=== PATIENT | male | born 1975 | race Caucasian/White ===

== ENCOUNTER 2024-09-21 15:15 | Inpatient (IN) | payer OTHER ==
--- NOTE | 2024-09-21 16:30 | RAD REPORT ---
EXAM:Extremity Venous Uni Ltd HISTORY: Left leg pain TECHNIQUE: Sonographic evaluation left lower extremity performed.Grayscale, color and spectral analys is performed on all vessels COMPARISON: None. FINDINGS: Left common femoral, superficial femoral, greater saphenous, popliteal and posterior tibial veins are compressible and demonstrate augmentation. Doppler demonstrates good flow. IMPRESSION: No evidence of deep venous thrombosis involving the left lower extremity.
--- NOTE | 2024-09-21 16:33 | RAD REPORT ---
EXAM:Lower Extremity Artery Uni Ltd HISTORY: Left eg pain TECHNIQUE: Sonographic evaluation lower extremity arteries performed.Grayscale, color and spectral analysis performed on all vessels COMPARISON: None. FINDINGS: Left common femoral, superficial femoral, popliteal, posterior tibial and dorsalis pedis arterial wav eforms are generally biphasic. No high-grade stenosis/occlusion 2.4 cm lymph node which is relatively hypoechoic left inguinal region. IMPRESSION: No significant vascular abnormality displayed 2.4 cm lymph node left inguinal region nonspecific. It probably is benign. However as neoplasm can diaz ve a similar appearance it is recommended that the patient have a follow-up ultrasound in 6 weeks to assess stability/resolution.
[2024-09-21] MEDS ORDERED: NA CHLORIDE 0.9% 100 ML ONE (17:29)
[2024-09-21] MEDS ORDERED: VANCOMYCIN 1 GM/VIAL ONE (17:29)
[2024-09-21] MEDS ORDERED: NA CHLORIDE 0.9% 250 ML ONE (17:29)
[2024-09-21] MEDS ORDERED: CEFEPIME 1 GM/VIAL ONE (17:30)
[2024-09-21] MEDS ORDERED: NA CHLORIDE 0.9% 2,000 ML ONE (17:30)
[2024-09-21 17:40] LABS: Absolute Lymphocytes (CBC) 1.3 K/uL (0.7-4.9); Absolute Monocytes 0.9 K/uL (0.1-1.3); Absolute Neutrophil 10.3 K/uL (1.8-8.0); Basophils % 0.2 % (0-1.3); Hematocrit 40.2 % (39.6-49.0); Hemoglobin 13.8 g/dL (13.6-17.9); Lymphocytes % 10.6 % (15.3-44.8); MCH 27.9 pg (27.0-35.0); MCHC 34.4 g/dL (32.0-36.0); MPV 8.3 fL (7.6-11.3); Monocytes % 7.2 % (3.3-12.3); Nucleated Red Blood Cells % 0.1 % (0-0); Platelets 245 thou/uL (152-406); RBC Red Blood Cell Count 4.96 M/uL (4.33-5.43); Red Cell Distribution Width 14.2 % (12.1-15.2)
[2024-09-21 18:53] LABS: PT Prothrombin Time 13.8 SECONDS (10.0-13.0); PTT, Activated Partial Thromb 25.7 SECONDS (24.3-36.9); Protime INR 1.22
[2024-09-21 18:54] LABS: Albumin/Globulin Ratio 0.6 (1.1-1.8); Anion Gap 10.6 mEq/L (5.0-15.0); Bilirubin Total 0.6 mg/dL (0.2-1.0); Potassium 3.6 mEq/L (3.5-5.1)
--- NOTE | 2024-09-21 18:56 | RAD REPORT ---
Exam:Foot Left 3 View CLINICAL HISTORY: Left foot pain FINDINGS: No fracture or dislocation seen. Large plantar calcaneal spur Soft tissue ulceration dorsal aspect of the forefoot. No bony destructive lesion seen
--- NOTE | 2024-09-21 19:05 | EDPHYS ---
Physician Documentation [facility] Name: Bernice Quintana Age: 49 yrs Sex: Male : 1975 Arrival Date: 09/21/2024 Time: 15:15 Bed 17 Private MD: ED Physician Douglas Brumfield HPI: 09/21 16:49 This 49 yrs old Male presents to ER via Wheelchair with complaints of Wound Check - kb left foot/leg. 16:49 Pt is a 49 year old male who presents for wound to top of left foot that has been kb ongoing for 3 months. States it developed in June, he was seen at and given antibiotics. States the wound started getting better until he ran out of antibiotics. Was seen again 2 weeks ago for strep and was given antibiotics which improved his foot, but symptoms started again once antibiotics were completed. States the wound, drainage and swelling has gotten worse over the last 3 days and he developed redness and swelling up his leg since yesterday. Reports fever as well. . Historical: - Allergies: 15:39 No Known Allergies; iw - Home Meds: 15:38 None [Active]; iw - PMHx: 15:43 None; iw - Immunization history:: Adult Immunizations not up to date. - Infectious Disease History:: Denies. - Social history:: Smoking status: Patient/guardian denies using tobacco, Stopped _ months ago 1. ROS: 16:16 Constitutional: As per HPI kb Exam: 16:16 Constitutional: This is a well developed, well nourished patient who is awake, alert, kb and in no acute distress. Head/Face: Normocephalic, atraumatic. ENT: Moist Mucous membranes Cardiovascular: Regular rate Respiratory: Respirations even and unlabored. No increased work of breathing. Talking in full sentences MS/ Extremity: Pulses equal, no cyanosis. Neurovascular intact. Full, normal range of motion. Neuro: Awake and alert, GCS 15, oriented to person, place, time, and situation. 16:45 ECG was reviewed by the Attending Physician. kb 16:48 Skin: cellulitis, that is moderate, on the left leg, open wound to top of left foot kb with drainage. Vital Signs: 15:37 BP 144 / 99; Pulse 112; Resp 18; Temp 99.1(O); Pulse Ox 98% on R/A; Weight 95.25 kg; iw Height 5 ft. 10 in. ; Pain 4/10; 18:00 BP 137 / 75; Pulse 95; Resp 18; Pulse Ox 99% ; bp 19:30 BP 147 / 101; Pulse 105; Resp 17; Temp 98.4(O); Pulse Ox 99% on R/A; bp 15:37 Body Mass Index 30.13 (95.25 kg, 177.8 cm) iw 15:37 Pain Scale: Adult iw MDM: 15:24 Medical Screening Exam initiated kb 17:47 Data reviewed: vital signs, nurses notes. Transition of care: After a detail discussion kb of the patient's case, care is transferred to Shavon Michael PA-C. 09/21 15:41 Order name: Blood Culture Adult (2); Complete Time: 17:44 kb 09/21 15:41 Order name: CBC with Diff; Complete Time: 17:49 kb 09/21 15:41 Order name: CMP; Complete Time: 18:55 kb 09/21 15:41 Order name: Lactate w/ 2H reflex if indic.; Complete Time: 19:04 kb 09/21 15:41 Order name: Protime (+inr); Complete Time: 18:53 kb 09/21 15:41 Order name: Ptt, Activated; Complete Time: 18:53 kb 09/21 17:46 Order name: Wound Culture; Complete Time: 14:21 kb 09/21 19:49 Order name: Creatine Phosphokinase; Complete Time: 23:30 EDMS 09/21 19:49 Order name: CBC with Automated Diff EDPR 09/21 19:49 Order name: CBC with Automated Diff; Complete Time: 17:44 EDMS 09/21 19:49 Order name: Comprehensive Metabolic Panel EDPR 09/21 19:49 Order name: Comprehensive Metabolic Panel; Complete Time: 17:44 EDMS 09/21 19:49 Order name: Lipid Profile EDPR 09/21 19:49 Order name: Lipid Profile; Complete Time: 17:44 EDMS 09/21 19:57 Order name: Osmolality, Serum; Complete Time: 23:57 EDMS 09/21 19:57 Order name: Osmolality, Urine; Complete Time: 14:21 EDMS 09/21 19:57 Order name: Thyroid Stimulating Hormone; Complete Time: 23:36 EDMS 09/21 19:57 Order name: UR SODIUM; Complete Time: 14:21 EDMS 09/21 19:57 Order name: Magnesium EDMS 09/21 19:57 Order name: Magnesium; Complete Time: 23:36 EDMS 09/21 19:57 Order name: Magnesium EDPR 09/21 19:57 Order name: Magnesium EDPR 09/22 06:52 Order name: LDL, Direct; Complete Time: 17:44 EDMS 09/21 15:41 Order name: US Extremity Venous Unilateral Ltd; Complete Time: 16:32 kb 09/21 15:41 Order name: US Lower Extremity Artery Uni Ltd; Complete Time: 16:34 kb 09/21 17:43 Order name: Foot Left 3 View XRAY; Complete Time: 18:57 kb 09/22 13:29 Order name: US; Complete Time: 17:44 EDMS 09/21 15:41 Order name: EKG; Complete Time: 15:41 kb 09/21 19:49 Order name: CONS Physician Consult EDPR 09/21 15:41 Order name: Accucheck; Complete Time: 15:57 kb 09/21 15:41 Order name: Cardiac monitoring; Complete Time: 15:57 kb 09/21 15:41 Order name: EKG - Nurse/Tech; Complete Time: 16:43 kb 09/21 15:41 Order name: IV Saline Lock - Large Bore; Complete Time: 17:05 kb 09/21 15:41 Order name: Labs collected and sent; Complete Time: 17:05 kb 09/21 15:41 Order name: O2 Per Protocol; Complete Time: 15:57 kb 09/21 15:41 Order name: O2 Sat Monitoring; Complete Time: 15:57 kb 09/21 15:41 Order name: Vital Signs; Complete Time: 15:57 kb 09/21 17:33 Order name: Labs - recollect needed: recollect all the blood per Yamilet / hemolyzed; eb Complete Time: 18:13 EC:45 Rate is 95 beats/min. Rhythm is regular. QRS [place] is Normal. CO interval is normal at kb 164 msec. QRS interval is normal at 92 msec. QT interval is normal at 444 msec. Administered Medications: 18:23 Drug: NS 0.9% IV (30 ml/kg) 30 ml/kg IV at bolus once; Sepsis Protocol; to be given as bp a bolus over 90 minutes Route: IV; Rate: bolus; Site: left forearm; 18:23 Drug: Cefepime IVPB 1 grams IVPB at 200 ml/hr once over 30 mins; (mix in NS 100 mL) bp Route: IVPB; Rate: 200 ml/hr; Infused Over: 30 mins; Site: left forearm; 19:02 Drug: vancoMYCIN IVPB 1 grams IVPB once over 2 hrs Route: IVPB; Infused Over: 2 hrs; bp Site: left forearm; Disposition: 09/22 12:45 Co-signature as Attending Physician, Douglas Brumfield MD I agree with the assessment and brian plan of care. Disposition Summary: 09/21/24 19:05 Hospitalization Ordered Notes: Hospitalization Status: Inpatient Admission sb4 Provider: Reji Flores sb4 Condition: Fair sb4 Problem: new sb4 Symptoms: are unchanged sb4 Bed/Room Type: Standard sb4 Location: Telemetry/MedSurg (Inpatient)(09/22/24 13:10) bd Room Assignment: [facility](09/22/24 13:10) bd Diagnosis - Cellulitis of left lower limb sb4 - Sepsis, unspecified organism sb4 Forms: - Medication Reconciliation Form sb4 - SBAR form sb4 - Leadership Thank You Letter sb4 Signatures: Dispatcher [employer] EDBecky Ledesma, DIRECTOR TALENT-C DIRECTOR TALENT-Belkys Spencer Corey, MD MD cha Williams, Irene, RN Bo Baker, RN Migdalia Mcelroy Sophia, PA-C PA-C [facility] Lillie Allen [facility] Corrections: (The following items were deleted from the chart) 09/21 15:41 15:41 Extremity Venous Uni Ltd+US.RAD.BRZ ordered. EDMS EDMS 15:42 15:42 Lower Extremity Artery Uni Ltd+US.RAD.BRZ ordered. EDMS EDMS 16:48 16:16 Constitutional: This is a well developed, well nourished patient who is awake, kb alert, and in no acute distress. Head/Face: Normocephalic, atraumatic. kb 19:50 19:05 Telemetry/MedSurg (Inpatient) sb4 kmf 19:50 19:05 sb4 km 09/22 13:10 09/21 19:50 BR ER HOLD kmf bd 09/22 19:50 ERHOLD- kmf bd
--- NOTE | 2024-09-21 19:05 | ER ---
Nurse's Notes [facility] Name: Berncie Quintana Age: 49 yrs Sex: Male : 1975 Arrival Date: 09/21/2024 Time: 15:15 Bed 17 Private MD: Diagnosis: Cellulitis of left lower limb;Sepsis, unspecified organism Presentation: 09/21 15:37 Chief complaint: Patient states: wound to top of left foot since June, redness and iw swelling up the leg now. Coronavirus screen: At this time, the client does not indicate any symptoms associated with coronavirus-19. Ebola Screen: No symptoms or risks identified at this time. Initial Sepsis Screen: Does the patient meet any 2 criteria? HR > 90 bpm. Does the patient have a suspected source of infection?. Risk Assessment: Do you want to hurt yourself or someone else? Patient reports no desire to harm self or others. Onset of symptoms was June 2024. 15:37 Method Of Arrival: Wheelchair iw 15:37 Acuity: IMANI 3 iw Triage Assessment: 15:45 General: Appears in no apparent distress. uncomfortable, Behavior is calm, cooperative, bp appropriate for age. Pain: Complains of pain in left foot. EENT: No deficits noted. Neuro: No deficits noted. Cardiovascular: Rhythm is sinus tachycardia. Respiratory: No deficits noted. GI: No signs and/or symptoms were reported involving the gastrointestinal system. : No signs and/or symptoms were reported regarding the genitourinary system. Derm: Decubitus located on left FOOT. Musculoskeletal: No deficits noted. Historical: - Allergies: 15:39 No Known Allergies; iw - Home Meds: 15:38 None [Active]; iw - PMHx: 15:43 None; iw - Immunization history:: Adult Immunizations not up to date. - Infectious Disease History:: Denies. - Social history:: Smoking status: Patient/guardian denies using tobacco, Stopped _ months ago 1. Screenin:45 [facility] ED Fall Risk Assessment (Adult) History of falling in the last 3 months, bp including since admission No falls in past 3 months (0 pts) Confusion or Disorientation No (0 pts) Intoxicated or Sedated No (0 pts) Impaired Gait No (0 pts) Mobility Assist Device Used No (0 pt) Altered Elimination No (0 pt) Score/Fall Risk Level 0 - 2 = Low Risk Oriented to surroundings. Abuse screen: Denies threats or abuse. Denies injuries from another. Nutritional screening: No deficits noted. Tuberculosis screening: No symptoms or risk factors identified. Assessment: 15:45 General: Appears in no apparent distress. Behavior is cooperative, appropriate for age, bp anxious. 19:36 General: Appears in no apparent distress. Behavior is calm, cooperative. Pain: Denies bp pain. Neuro: Level of Consciousness is awake, alert, Oriented to person, place, time, situation. Cardiovascular: Denies chest pain, Patient's skin is warm and dry. Respiratory: Airway is patent Trachea midline Respiratory effort is even, unlabored. GI: Abdomen is round non-distended, Abd is soft and non tender. : No signs and/or symptoms were reported regarding the genitourinary system. EENT: No deficits noted. Derm: Skin is intact, Skin is dry, Skin is normal, Skin temperature is warm. Musculoskeletal: Circulation, motion, and sensation intact. Range of motion: intact in all extremities. Vital Signs: 15:37 BP 144 / 99; Pulse 112; Resp 18; Temp 99.1(O); Pulse Ox 98% on R/A; Weight 95.25 kg; iw Height 5 ft. 10 in. ; Pain 4/10; 18:00 BP 137 / 75; Pulse 95; Resp 18; Pulse Ox 99% ; bp 19:30 BP 147 / 101; Pulse 105; Resp 17; Temp 98.4(O); Pulse Ox 99% on R/A; bp 15:37 Body Mass Index 30.13 (95.25 kg, 177.8 cm) iw 15:37 Pain Scale: Adult iw ED Course: 15:17 Patient arrived in ED. im 15:23 Becky Costa FNP-C is PHCP. kb 15:23 Douglas Brumfield MD is Attending Physician. kb 15:38 Triage completed. iw 15:43 Arm band placed on. iw 15:45 Patient has correct armband on for positive identification. bp 15:54 Bo Becerra, RN is Primary Nurse. bp 16:27 US Extremity Venous Unilateral Ltd In Process Unspecified. EDMS 16:27 US Lower Extremity Artery Uni Ltd In Process Unspecified. EDMS 16:44 EKG done, by ED staff, reviewed by Becky RESTREPO. hb 17:00 Initial lab(s) drawn, by me, sent to lab. First set of blood cultures drawn by me, bp Second set of blood cultures drawn by me. Inserted saline lock: 22 gauge in left forearm, using aseptic technique. Blood collected. Flushed with 10 mL NS. 17:46 PHCP role handed off by Becky Costa FNP-C sb4 17:46 Shavon Michael PA-C is PHCP. sb4 18:26 Lab(s) recollected, by me, sent to lab. Wound culture swab sent to lab. bp 18:41 Foot Left 3 View XRAY In Process Unspecified. EDMS 19:04 Reji Flores MD is Hospitalizing Provider. sb4 19:36 Provided Education on: needs for admit. bp 19:36 No provider procedures requiring assistance completed. Patient admitted, IV remains in bp place. intact, No redness/swelling at site. 22:56 Inserted saline lock: 22 gauge in right antecubital area, using aseptic technique. lg3 Blood collected. Flushed with 10 mL NS. 09/22 07:17 Primary Nurse role handed off by Bo Becerra, ANTONIA bd 13:12 Danyelle Eddy, RN is Primary Nurse. me1 Administered Medications: 09/21 18:23 Drug: NS 0.9% IV (30 ml/kg) 30 ml/kg IV at bolus once; Sepsis Protocol; to be given as bp a bolus over 90 minutes Route: IV; Rate: bolus; Site: left forearm; 18:23 Drug: Cefepime IVPB 1 grams IVPB at 200 ml/hr once over 30 mins; (mix in NS 100 mL) bp Route: IVPB; Rate: 200 ml/hr; Infused Over: 30 mins; Site: left forearm; 19:02 Drug: vancoMYCIN IVPB 1 grams IVPB once over 2 hrs Route: IVPB; Infused Over: 2 hrs; bp Site: left forearm; Medication: 15:45 VIS not applicable for this client. bp Outcome: 19:05 Decision to Hospitalize by Provider. sb4 19:36 Admitted to Med/surg accompanied by tech, bp 19:36 Condition: improved 19:36 Instructed on the need for admit, 09/22 14:41 Patient left the ED. me1 Signatures: Dispatcher [employer] EDMS Becky Costa, PRINTED CIRCUIT LAYOUT TAPER-C PRINTED CIRCUIT LAYOUT TAPER-Ckb Belkys Medina Irene, RN RN iw Rivka Bernal, ANTONIA RN Bo Becerra RN RN bp Sherley Ríos RN RN lg3 Shavon Michael, PARoxanne PARoxanne sb4 Felicia Mercado Michelle, RN RN me1 Corrections: (The following items were deleted from the chart) 09/21 15:43 15:37 BP 144 / 99; Pulse 112bpm; Resp 18bpm; Pulse Ox 98% RA; Temp 97.4F; iw iw
[2024-09-21] MEDS ORDERED: ONDANSETRON 4 MG/2 ML VIAL IV PRN (19:42)
[2024-09-21] MEDS ORDERED: ALBUTEROL 2.5 MG/3 ML NEB SOL NEB PRN (19:44)
--- NOTE | 2024-09-21 19:54 | P.HP ---
Certification for Inpatient With expected LOS: >2 Midnights Patient will require the following post-hospital care: None Practitioner: I am a practitioner with admitting privileges, knowledge of patient current condition, hospital course, and medical plan of care. Services: Services provided to patient in accordance with Admission requirements found in Title 42 Section 412.3 of the Code of Federal Regulations Patient History Date of Service: 09/21/24 Reason for admission: Left leg pain and swelling History of Present Illness: 49-year-old male with past medical history of hypertension, not on any medications, developed left leg pain and swelling with a foot ulcer since the last 2 months. States lesion started as an ulcer without any trauma over the superior surface/dorsum of the left foot, area of ulceration continue to widen. He has taking antibiotics 1 month ago for sore throat with Augmentin for 5 days but wound area did not improve. He developed worsening of the wound size as well as new pain and swelling and new rash extending up to the upper thigh since the last 3 days. He admits to fever with chills. He states pain is worse when walking. He presented to the ED today because of persistent and worsening symptoms. On arrival in the ED temp was 99, elevated WBC at 12K with right shift, BMP was unremarkable except for serum sodium of 128. Foot x-ray shows ulceration over the dorsum of the left foot but no bony involvement. Plantar spur also noted. Venous Doppler of the lower extremity shows no DVT. Arterial Doppler shows normal biphasic flow, incidental left inguinal lymph node x 1 noted Patient has been admitted for worsening left foot ulcer with worsening cellulitis Home medications list reviewed: No (No home meds) - Past Medical/Surgical History -: Hypertension Past Surgical History: Patient denies surgical history - Family History Family History: Reviewed- Non-Contributory - Social History Smoking Status: Heavy Tobacco smoker (>10 cigarettes/day) Smoking therapy provided: Yes Patient receptive to therapy: Yes Alcohol use: No CD- Drugs: No Caffeine use: No Place of Residence: Home Review of Systems General: Fever, Chills Musculoskeletal: Leg Pain, Foot Pain Integumentary: Rash, Lesions Physical Examination - Physical Exam General: Alert, In no apparent distress, Cooperative HEENT: Atraumatic, Normocephalic, PERRLA Neck: Supple, 2+ carotid pulse no bruit, JVD not distended Respiratory: Clear to auscultation bilaterally, Normal air movement Cardiovascular: Normal pulses, Regular rate/rhythm, Normal S1 S2 Gastrointestinal: Normal bowel sounds, Soft and benign, Non-distended, No ascites, No tenderness Musculoskeletal: Swelling, Erythema, Tenderness, Warmth, Other (LEFT foot and leg ) Integumentary: Other (left dorsal ulcer proximal to metatarsal heads , with ascending erythema patches to thigh) Neurological: Normal speech, Normal strength at 5/5 x4 extr, Sensation intact, Cranial nerves 3-12 intact - Studies Laboratory Data (last 24 hrs) 09/21/24 09/21/24 09/21/24 18:15 18:15 17:00 WBC 12.50 H Hgb 13.8 Hct 40.2 Plt Count 245 PT 13.8 H INR 1.22 APTT 25.7 Sodium 128 L Potassium 3.6 BUN 25 H Creatinine 1.02 Glucose 97 Total Bilirubin 0.6 AST 18 ALT 29 Alkaline Phosphatase 96 Assessment and Plan - Problems (Diagnosis) (1) Cellulitis of left leg Current Visit: Yes Status: Acute (2) Foot ulcer, limited to breakdown of skin Current Visit: Yes Status: Acute (3) Hypertension Current Visit: Yes Status: Acute (4) Hyponatremia Current Visit: Yes Status: Acute - Plan Impression Left foot ulcer with ascending cellulitislikely due to venous ulcer Chronic tobacco use History of hypertension Bilateral venous stasis dermatitis Hyponatremia Plan Will admit patient to inpatient Will start patient on cefepime and vancomycin Follow blood culture Monitor area of erythema and response to antibiotics Left foot dorsum ulcer noted, wound care with dressing Pain control Subcutaneous Lovenox for DVT prophylaxis May benefit from Arthur wrap to both lower extremities given venous stasis dermatitis Consult OT Will consult renal for hyponatremia, start normal saline IV hydralazine as needed Full code Total time spent in evaluation and discussion greater than 70-minute Discharge Plan: Home Plan to discharge in: 48 Hours - Advance Directives Does patient have a Living Will: No Does patient have a Durable POA for Healthcare: No Physician Review: Patient Assessed, Agree with Above Assessment and Plan Time Spent Managing Pts Care (In Minutes): 75
[2024-09-21] MEDS: NA CHLORIDE 0.9% 1,000 ML IV SCH (20:00)
[2024-09-21] MEDS: VANCOMYCIN 1 GM in NA CHLORIDE 0.9% 250 ML IVPB SCH (20:00)
[2024-09-21] MEDS ORDERED: MORPHINE 2 MG/ML SYR ONE (20:38)
[2024-09-21] MEDS ORDERED: FAMOTIDINE 20 MG TAB ONE (20:38)
[2024-09-21] MEDS ORDERED: NA CHLORIDE 0.9% 1,000 ML ONE (20:39)
[2024-09-21] MEDS: MORPHINE 2 MG/ML SYR IV PRN (20:42)
[2024-09-21] MEDS: FAMOTIDINE 20 MG TAB PO SCH (21:00)
[2024-09-21] MEDS ORDERED: MELATONIN 5 MG TABLET PO ONE (23:08)
[2024-09-21] MEDS ORDERED: Oxycodone HCl/Acetaminophen 5/325 MG TAB ONE (23:08)
[2024-09-21] MEDS: Oxycodone HCl/Acetaminophen 5/325 MG TAB PO PRN (23:12)
[2024-09-21] MEDS: MELATONIN 5 MG TABLET PO PRN (23:13)
[2024-09-21 23:35] LABS: Magnesium 2.3 mg/dL (1.6-2.4); Thyroid Stimulating Hormone 1.15 uIU/mL (0.358-3.740)
[2024-09-21 23:37] VITALS: BMI 30.1
[2024-09-22] MEDS ORDERED: MORPHINE 2 MG/ML SYR ONE ×2 (01:39→11:40)
[2024-09-22] MEDS ORDERED: Oxycodone HCl/Acetaminophen 5/325 MG TAB ONE ×2 (03:48→07:51)
[2024-09-22 05:57] LABS: Absolute Lymphocytes (CBC) 1.3 K/uL (0.7-4.9); Basophils % 0.3 % (0-1.3); Hematocrit 35.2 % (39.6-49.0); MCH 27.9 pg (27.0-35.0); MCHC 34.1 g/dL (32.0-36.0); MCV 81.8 fL (80-100); MPV 7.6 fL (7.6-11.3); Monocytes % 9.7 % (3.3-12.3); Platelets 253 thou/uL (152-406); Red Cell Distribution Width 14.5 % (12.1-15.2)
[2024-09-22 06:24] LABS: ALT/SGPT 60 U/L (16-61); AST/SGOT 60 U/L (15-37); Albumin 2.7 g/dL (3.4-5.0); Albumin/Globulin Ratio 0.6 (1.1-1.8); Alkaline Phosphatase 111 U/L (45-117); Anion Gap 10.5 mEq/L (5.0-15.0); BUN Blood Urea Nitrogen 14 mg/dL (7-18); Bicarbonate 25 mEq/L (21-32); Bilirubin Total 0.6 mg/dL (0.2-1.0); Globulin 4.4 g/dL (2.3-3.5); Glomerular Filtration Rate 108 ml/min (=/>90); Glucose Level 113 mg/dL (74-106); HDL Cholesterol 9 mg/dL (40-60); Potassium 3.5 mEq/L (3.5-5.1); Protein, Total 7.1 g/dL (6.4-8.2); Sodium Level 132 mEq/L (136-145)
[2024-09-22 06:52] LABS: LDL, Direct 76 mg/dL (100-129)
[2024-09-22] MEDS: FLU (Fluarix Triv) TS24-25(6MOS UP)/PF 45 MCG/0.5 ML Syringe IM ONE (07:15)
[2024-09-22] MEDS ORDERED: FAMOTIDINE 20 MG TAB ONE (07:50)
[2024-09-22] MEDS ORDERED: ASPIRIN EC 81 MG TAB PO ONE (07:50)
[2024-09-22] MEDS ORDERED: ENOXAPARIN 40 MG/0.4 ML SQ ONE (07:51)
[2024-09-22] MEDS ORDERED: NICOTINE 21 MG/PAT TD ONE (07:51)
[2024-09-22] MEDS: ASPIRIN EC 81 MG TAB PO SCH (08:13)
[2024-09-22] MEDS: ENOXAPARIN 40 MG/0.4 ML SQ SCH (08:13)
[2024-09-22] MEDS: NICOTINE 21 MG/PAT TD SCH (08:14)
[2024-09-22] MEDS: VANCOMYCIN 1.5 GM in NA CHLORIDE 0.9% 500 ML IV SCH (09:00)
[2024-09-22] MEDS ORDERED: NA CHLORIDE 0.9% 1,000 ML ONE (11:40)
--- NOTE | 2024-09-22 11:57 | EKG ---
Test Date: 2024-09-21 Test Time: 16:41:47 Deputy Director Of Nursing: HB MEASUREMENT RESULTS: Intervals: Rate: 95 AL: 164 QRSD: 92 QT: 354 QTc: 444 [place]: P: 33 AL: 164 QRS: 4 T: 50 INTERPRETIVE STATEMENTS: Normal sinus rhythm Normal ECG No previous ECG available for comparison Electronically Signed On 09-22-24 11:56:26 COMMUNITY PROGRAM ASSISTANT by Kelechi Montgomery
--- NOTE | 2024-09-22 13:28 | RAD REPORT ---
EXAMINATION: US RETROPERITONEUM CLINICAL INDICATION: hyponatremia, abnormal renal function test TECHNIQUE: Real-time ultrasonography of the abdomen was performed. COMPARISON: No prior exam. FINDINGS: RIGHT KIDNEY: Right renal length measurement: 11.8 cm. Normal in echogenicity and size. No calculus, solid mass or hydronephrosis. LEFT KIDNEY: Left renal length measurement: 10.6 cm. Normal in echogenicity and size. No calculus, so lid mass or hydronephrosis. ADDITIONAL FINDINGS: Underdistended bladder is unremarkable. IMPRESSION: No acute or significant abnormalities.
[2024-09-22] MEDS ORDERED: ALBUTEROL 2.5 MG/3 ML NEB SOL NEB PRN (14:49)
[2024-09-22] MEDS ORDERED: VANCOMYCIN 750 MG in NA CHLORIDE 0.9% 150 ML IVPB SCH (16:00)
--- NOTE | 2024-09-22 18:34 | P.PN ---
Subjective Date of Service: 09/22/24 Chief Complaint: Left leg pain and swelling Patient complaining of uncontrolled pain in his left leg. No recorded fever. Physical Examination - Vital Signs Temperature: 99 F Blood Pressure: 144/95 Pulse: 97 Respirations: 16 Pulse Ox (%): 100 - Physical Exam General: Alert, In no apparent distress, Oriented x3 HEENT: Mucous membr. moist/pink, Sclerae nonicteric Neck: JVD not distended Respiratory: Clear to auscultation bilaterally, Normal air movement Cardiovascular: No edema, Regular rate/rhythm, Normal S1 S2 Gastrointestinal: Normal bowel sounds, Soft and benign, Non-distended, No tenderness Musculoskeletal: Swelling (Left leg), Tenderness (Left leg) Integumentary: Erythema (Up to knee on the left leg), Other (Wound on the dorsum of the left foot.) Neurological: Normal speech, Normal strength at 5/5 x4 extr - Studies Laboratory Data (last 24 hrs) 09/21/24 09/21/24 18:15 18:15 PT 13.8 H INR 1.22 APTT 25.7 Sodium 128 L Potassium 3.6 BUN 25 H Creatinine 1.02 Glucose 97 Total Bilirubin 0.6 AST 18 ALT 29 Alkaline Phosphatase 96 Microbiology Data (last 24 hrs): 09/21/24 18:15 Wound - Left Foot Gram Stain - Final Assessment And Plan - Current Problems (Diagnosis) (1) Cellulitis of left leg Current Visit: Yes Status: Acute (2) Foot ulcer, limited to breakdown of skin Current Visit: Yes Status: Acute (3) Hypertension Current Visit: Yes Status: Acute (4) Hyponatremia Current Visit: Yes Status: Acute - Plan Left lower extremity cellulitis Left foot wound Sepsis Patient met criteria for sepsis with leukocytosis and tachycardia. Blood cultures shows no growth to date. Continue IV vancomycin. Add IV cefepime Keep left lower extremity elevated Follow blood cultures Local wound care. Hyponatremia Unknown etiology Normal TSH IV NS Monitor BMP Hypertension Patient is not on any home antihypertensives Monitor BP Hydralazine as needed for BP spikes. Start lisinopril if BP remains persistently elevated. DVT prophylaxis: Lovenox Advanced directive: Full code
--- NOTE | 2024-09-22 18:49 | CON ---
Date of Consultation: 09/22/2024 Chief Complaint: Hyponatremia. History Of Present Illness: The patient is 49-year-old man with past medical history of hypertension, not on any medication in the recent past. The patient developed left leg pain and swelling with foot ulcer on the dorsum of his foot about 2 months ago. Over the 3 days prior this admission, he developed progressively worse erythema extending to the calf area associated with low- grade fever. He was taking antibiotics about 1 month ago when he presented to [facility]. He was prescribed Augmentin for 5 days, but wound area did not improve. The patient developed worsening of the wound size as well as pain, swelling, erythema, rash extending to upper calf 3 days ago. He also had fever and chills. Pain was worse with walking. He denies nausea or vomiting. He was taking ibuprofen [id number] medications for pain control. In the emergency room, he was found to have elevated WBC of 12,000 with right shift. BMP showed prerenal azotemia, high BUN and creatinine ratio, and hyponatremia, sodium of 128. The patient denies history of diabetes, although he has not had appointment with his primary doctor for at least a month. Foot x-ray showed ulceration of the dorsum of the left foot, but no bony involvement. Nephrology consultation is requested for hyponatremia. Past Medical History: Hypertension. Family History: Noncontributory. Social History: Significant for heavy tobacco smoking, greater than 10 cigarettes per day. He states that he quit smoking recently. Denies alcohol. Review of Systems: Constitutional: Fever, chills. GI: Denies nausea, vomiting, melena, hematemesis. : Denies dysuria or hematuria. Musculoskeletal: Leg pain, foot pain. Physical Examination: General: Patient is alert, not in apparent distress. Eyes: Anicteric sclerae, EOMI. Ears, Nose, Mouth, and Throat: Oral mucosa moist. No pallor. Neck: Supple. No bruits. Lungs: Diminished breath sounds at bases. Heart: S1, S2. Abdomen: Soft, benign. Extremities: Pain and swelling over the left lower extremity, ascending erythema to the thigh. Dressing in place. Laboratory Work: WBC 12.5, hemoglobin 13.8, hematocrit 40.2, platelet count 245,000. Sodium 128, potassium 3.6, BUN 25, creatinine 1.02, glucose 97, and total bilirubin 0.6. Impression And Plan: 1. Cellulitis of the leg, nonhealing wound. The patient was started on antibiotics. The patient has hyponatremia, sodium of 128. He is started on normal saline and sodium level is improving. Patient will have further workup for hyponatremia. TSH is within normal limits. Urine osmolality is pending. Uric acid is pending. Likely the patient had prerenal azotemia, acute nonoliguric kidney injury and hyponatremia was secondary to nonsteroidal anti- inflammatory medication in setting of prerenal azotemia , although other causes need to be ruled out. 2. Patient has history of hypertension. Continue medication. Avoid HCTZ due to high risk of severe hyponatremia in this particular patient. 3. Lower extremity cellulitis and ulcer. Avoid nonsteroidal anti-inflammatory medication. 4. Hypertension, severe. Patient was started on IV hydralazine. check renal US and renal aretry doppler to evaluate for renal artery stenosis. 5. Prerenal azotemia. Acute kidney injury due to volume depletion and nonsteroidal anti-inflammatory medication. Continue normal saline as needed. Currently, patient tolerates p.o. intake. Continue p.o. intake. Monitor electrolytes. 6. Hypertension, severe, uncontrolled. The patient was started on hydralazine. Check urinalysis to rule out active urinary sediment to evaluate for possible nephritis related to NSAID or otehr causes and check renal ultrasound to rule out obstructive uropathy. KEYONNA/JERICA Voice ID: [id number] Report ID: [id number] AHSAN
[2024-09-22] MEDS: CEFEPIME 2 GM in NA CHLORIDE 0.9% 100 ML IV SCH (20:29)
[2024-09-23 06:27] LABS: Absolute Lymphocytes (CBC) 1.4 K/uL (0.7-4.9); Absolute Monocytes 0.8 K/uL (0.1-1.3); Absolute Neutrophil 7.8 K/uL (1.8-8.0); Basophils % 0.4 % (0-1.3); Eosinophils % 0.2 % (0-4.4); Hematocrit 35.4 % (39.6-49.0); Hemoglobin 12.2 g/dL (13.6-17.9); Lymphocytes % 14.2 % (15.3-44.8); MCH 27.9 pg (27.0-35.0); MCHC 34.4 g/dL (32.0-36.0); MCV 81.3 fL (80-100); MPV 8.1 fL (7.6-11.3); Monocytes % 8.3 % (3.3-12.3); Neutrophils % 76.9 % (41.7-73.7); Nucleated Red Blood Cells % 0.1 % (0-0); Platelets 304 thou/uL (152-406); RBC Red Blood Cell Count 4.35 M/uL (4.33-5.43); Red Cell Distribution Width 14.9 % (12.1-15.2)
[2024-09-23 06:31] LABS: Specific Gravity < 1.005 (1.005-1.030); Sqamous Epithelial None Seen /HPF (None Seen); Urine Bacteria None Seen /HPF (<20); Urine Bilirubin NEGATIVE (Negative); Urine Blood Negative (Negative); Urine Clarity Clear (Clear); Urine Color Colorless (Yellow); Urine Culture Reflex Order NOT NEEDED; Urine Glucose NEGATIVE (Negative); Urine Ketones NEGATIVE (Negative); Urine Micro Reflex YN NO BILL MICROSCOPIC; Urine Nitrite NEGATIVE (Negative); Urine Protein NEGATIVE (Negative); Urine RBC None Seen /HPF (None Seen); Urine Urobilinogen Normal (Normal); Urine WBC <5 /HPF (<5); Urine pH 6.5 (5.0-7.0)
[2024-09-23 06:39] LABS: Anion Gap 9.4 mEq/L (5.0-15.0); Magnesium 2.3 mg/dL (1.6-2.4); Potassium 3.4 mEq/L (3.5-5.1); Uric Acid 3.8 mg/dL (3.5-7.2)
--- NOTE | 2024-09-23 09:39 | P.PN ---
Date of Service: 09/23/24 Subjective: remains tachy in 100-110s otherwise doing okay foot pain ~same afebrile ROS: 10 point ROS as noted above, otherwise negative Physical Exam: GEN: Alert, oriented, NAD CV: Sinus tachycardia, no edema Pulm: Nonlabored respirations on room air, clear bilaterally ABD: soft, nontender, nondistended Integumentary: Wound on dorsum of left foot. Erythema up to knee. +swollen & tender Neuro: Normal speech, normal affect Problem List: Sepsis secondary to left lower extremity cellulitis Hyponatremia Hypertension Sepsis secondary to left lower extremity cellulitis Patient met criteria for sepsis with leukocytosis and tachycardia. Blood cx (09/21): NGTD Wound c (09/21): 1+ staph payroll secretary, 1+ beta hemolytic strep group A continue IV cefepime / vanc (09/22-) afebrile, leukocytosis resolved Keep left lower extremity elevated local wound care pain control Hyponatremia, Unknown etiology Normal TSH s/p IV fluids nephrology consulted Monitor and replete electrolytes as needed. improved Hypertension Patient is not on any home antihypertensives IV hydralazine PRN VTE: Lovenox Code: Full Dispo: Home, ~2 days Time Spent Managing Pts Care (In Minutes): 55
[2024-09-23] MEDS: POTASSIUM PHOS 30 MM in NA CHLORIDE 0.9% 500 ML IV ONE ×2 (10:30→20:23)
--- NOTE | 2024-09-23 12:00 | PN ---
Date of Progress Note: 09/23/2024 Subjective: The patient was admitted to the hospital with cellulitis for the left leg with acute kidney injury and hyponatremia secondary to depletional, prerenal. The patient after hydration kidney function has been improved. Physical Examination: Vital Signs: Blood pressure 155/92, pulse of 104. The patient had good urine output. Chest: Clear to auscultation. Heart: S1, S2. Regular. Abdomen: Soft, nontender. Extremities: No edema on the right. Erythema with swelling on the left leg. Laboratory Data: WBC 10.1, hemoglobin 12.2, sodium 138, potassium 3.4, bicarb 27, BUN 10, creatinine 1, calcium 9.1, uric acid 3.8, magnesium 2.3. Renal ultrasound, 11.8/10.6. Current Medications: The patient on include cefepime, vancomycin, nicotine, Lovenox, Tylenol, Pepcid, melatonin. Assessment And Plan: 1. Acute kidney injury secondary to prerenal, recovered, resolved. 2. Hyponatremia, depletional, resolved. 3. Hypokalemia. We will supplement. We will check. Hypomagnesemia has been ruled out. 4. Cellulitis, as by Primary. Continue current antibiotic dose appropriate. Time spent examining the patient [id number] reviewing data lab and an audiology placing order discussing the case with the patient discussing the case with the steam roller operator including hospitalist and nursing staff more than 55-minute SOCORRO Voice ID: [id number] Report ID: [id number] AHSAN
[2024-09-23] MEDS: Mupirocin NASAL 2 APPL/1 GM TUBE NAS SCH (20:22)
[2024-09-24 06:01] LABS: Absolute Basophils 0.1 K/uL (0-0.5); Absolute Lymphocytes (CBC) 1.8 K/uL (0.7-4.9); Absolute Neutrophil 5.6 K/uL (1.8-8.0); Eosinophils % 0.5 % (0-4.4); Hematocrit 31.8 % (39.6-49.0); Hemoglobin 10.9 g/dL (13.6-17.9); Lymphocytes % 21.4 % (15.3-44.8); MCH 27.9 pg (27.0-35.0); MCHC 34.2 g/dL (32.0-36.0); MCV 81.6 fL (80-100); MPV 7.6 fL (7.6-11.3); Monocytes % 11.7 % (3.3-12.3); Neutrophils % 65.4 % (41.7-73.7); Platelets 315 thou/uL (152-406); Red Cell Distribution Width 14.8 % (12.1-15.2)
[2024-09-24 06:25] LABS: Anion Gap 9.4 mEq/L (5.0-15.0); Magnesium 2.1 mg/dL (1.6-2.4); Potassium 3.4 mEq/L (3.5-5.1)
[2024-09-24] MEDS: VANCOMYCIN 2 GM in NA CHLORIDE 0.9% 500 ML IV SCH (08:38)
--- NOTE | 2024-09-24 10:27 | P.PN ---
Date of Service: 09/24/24 Subjective: no acute events overnight feeling better today left leg swelling, tenderness improving afebrile ROS: 10 point ROS as noted above, otherwise negative Physical Exam: GEN: Alert, oriented, NAD CV: Sinus tachycardia, no edema Pulm: Nonlabored respirations on room air, clear bilaterally ABD: soft, nontender, nondistended Integumentary: Wound on dorsum of left foot. Erythema up to knee. less swollen/tender today. Neuro: Normal speech, normal affect Problem List: Sepsis secondary to left lower extremity cellulitis Hyponatremia Hypertension Sepsis secondary to left lower extremity cellulitis Patient met criteria for sepsis with leukocytosis and tachycardia. Wound c (09/21): MRSA, 1+ beta hemolytic strep group A Blood cx (09/21): NGTD continue IV vanc (09/22-) dc IV cefepime given culture results ID consult afebrile, leukocytosis resolved Keep left lower extremity elevated local wound care pain control Hyponatremia, Unknown etiology Normal TSH s/p IV fluids nephrology consulted Monitor and replete electrolytes as needed. improved Hypertension Patient is not on any home antihypertensives IV hydralazine PRN VTE: Lovenox Code: Full Dispo: Home, ~2 days Time Spent Managing Pts Care (In Minutes): 55
[2024-09-24] MEDS: POTASSIUM 25 MEQ EFFERV TAB PO ONE (10:36)
[2024-09-24] MEDS: carvediloL 12.5 MG TAB PO SCH (10:36)
--- NOTE | 2024-09-24 12:27 | PN ---
Date of Progress Note: 09/24/2024 Subjective: The patient was admitted to the hospital with cellulitis and acute kidney injury seconda ry to toxic ATN, depletional, prerenal. The patient after hydration, kidney function has been normal ized. Physical Examination: Vital Signs: Blood pressure 162/94, pulse of 91, afebrile. Chest: Clear to auscultation. Heart: S1, S2. Regular. Abdomen: Soft, nontender. Extremities: No edema. Edema has been subside significantly on the left leg, but still have erythem a. Laboratory Data: WBC 8.5, hemoglobin 10.9, sodium 143, potassium 3.4, bicarb 24, BUN 12, creatinine 0.7, calcium 8.1, magnesium 2.1. Current Medications: The patient on, it includes: 1. Aspirin. 2. Vancomycin. 3. Lovenox. 4. Tylenol. 5. Pepcid. Assessment And Plan: 1. Acute kidney injury secondary to prerenal/toxic ATN, recovered, resolved. Looked to me normal vol ume. I am going to keep holding IV fluid, and we will monitor the patient. 2. Hypokalemia. We will supplement. 3. Cellulitis. Continue current antibiotics secondary to MRSA. Continue vancomycin. We will follow up level. 4. Hypertension, not controlled. We will start the patient on beta- kavin and we will follow up. Keep holding any AURELIANO inhibitor or ARB. SOCORRO Voice ID: [id number] Report ID: [id number]
--- NOTE | 2024-09-24 16:41 | CON ---
History Of Present Illness: This is a 49-year-old male coming in with cellulitis of leg. The patien t is somnolent, most of the history was obtained through medical records and staff. The patient has significant past medical history of hypertension, left leg pain, swelling of the foot and foot ulcer for last 2 months. Does not recall any trauma to the area. According to medical record, the patient has ulceration without any trauma. He was taking antibiotic a month ago Augmentin for 5 days. The patient is currently on vancomycin because of MRSA in wound culture. Past Medical History: As per HPI. Social History: Tobacco positive, alcohol negative. Family History: Noncontributory. Medications: Vancomycin, see MARS for other medications. Allergies: NO KNOWN TO DRUGS. Review of Systems: A 10-point review was performed. Physical Examination: General: This is a 49-year-old male, lying in bed, not in any acute cardiopulmonary distress, somnol ent. Vital Signs: Temperature 97.7, pulse 90, respiration 15, blood pressure 169/105. HEENT: Unremarkable. Neck: Supple. Lungs: Basal crackles. Heart: S1, S2 regular. Abdomen: Soft, nontender. Bowel sounds present. Extremities: Left foot presents multiple lesions and erythematous changes and increased warmth noted all the way up to the ankle. Lab Data: WBC down from 12.5 to 8.5, hemoglobin 10.9, platelets are 315. Chemistry shows BUN of 12, creatinine 0.7. Micro data, MRSA in the wound culture from the left foot. Blood cultures are pendi ng. Negative for 24 hours. The patient is currently on vancomycin. Assessment And Plan: A 49-year-old male with left leg cellulitis and multiple ulceration, because of vague history, most likely to be traumatic, peripheral arterial disease, longstanding tobacco histor y, leukocytosis improved. Consider Silvadene to the foot. Keep leg elevated when possible. Continu e supportive care and wound care. We will follow the patient as needed. Thank you for consult. NF/MODL Voice ID: [id number] Report ID: [id number]
[2024-09-25 06:44] LABS: Anion Gap 8.1 mEq/L (5.0-15.0); C-Reactive Protein 74.4 mg/L (<3.00); Magnesium 2.3 mg/dL (1.6-2.4); Potassium 4.1 mEq/L (3.5-5.1)
[2024-09-25] MEDS: HYDRALAZINE HCL 20 MG/ML VIAL IV PRN (12:23)
--- NOTE | 2024-09-25 14:31 | PN ---
Date of Progress Note: 09/25/2024 Subjective: The patient was admitted to the hospital with anasarca, cellulitis on the left leg. The patient had acute kidney injury with electrolyte imbalance and hypokalemia. The patient treated, ki dney function normalized. Physical Examination: Vital Signs: Blood pressure 142/97, pulse of 87, afebrile. Chest: Clear to auscultation. Heart: S1, S2 regular. Abdomen: Soft, nontender, obese. No organomegaly. Extremities: No edema on the right. Erythema on the left with multiple ulcers on the leg. Laboratory Data: Hemoglobin 10.9, WBC 8.5. Sodium 139, potassium 4.1, bicarb 30, BUN 13, creatinine 0.9. Calcium 9.1, magnesium 2.3. C-reactive protein 74. Current Medications: The patient on include vancomycin 2 g b.i.d., aspirin, Lovenox, hydralazine, Pe pcid. Assessment And Plan: 1. Acute kidney injury secondary to prerenal, toxic ATN, secondary to sepsis, cellulitis, recovered, resolved. 2. Hypertension, controlled, not optimal, I am going to start the patient on low dose of carvedilol a nd we will monitor the patient. 3. Hypokalemia, status post supplement, resolved. 4. Cellulitis, stable. RITU/JERICA Voice ID: [id number] Report ID: [id number]
--- NOTE | 2024-09-25 15:19 | P.PN ---
Date of Service: 09/25/24 Subjective: no acute events overnight feeling better each day still quite erythematous pain improving more awake/alert today ROS: 10 point ROS as noted above, otherwise negative Physical Exam: GEN: Alert, oriented, NAD Pulm: Nonlabored respirations on room air, clear bilaterally ABD: soft, nontender, nondistended Integumentary: Wound on dorsum of left foot. Erythema up to knee. less swollen/tender today. Neuro: Normal speech, normal affect Problem List: Sepsis secondary to left lower extremity cellulitis Hyponatremia Hypertension Sepsis secondary to left lower extremity cellulitis Patient met criteria for sepsis with leukocytosis and tachycardia. Wound c (09/21): MRSA, 1+ beta hemolytic strep group A Blood cx (09/21): NGTD continue IV vanc (09/22-) dc IV cefepime given culture results ID consult possibly zyvox on dc - 2 weeks will check MRI - r/o osteo afebrile, leukocytosis resolved Keep left lower extremity elevated local wound care pain control Hyponatremia, Unknown etiology Normal TSH s/p IV fluids nephrology consulted Monitor and replete electrolytes as needed. improved Hypertension Patient is not on any home antihypertensives IV hydralazine PRN VTE: Lovenox Code: Full Dispo: Home, possibly tomorrow Time Spent Managing Pts Care (In Minutes): 45
--- NOTE | 2024-09-25 15:46 | RAD REPORT ---
EXAM: Foot Left Wo Cont HISTORY: r/o osteo, dorsum of left distal anirudh COMPARISON: None TECHNIQUE: Multiplanar multisequence MR images were obtained of the imaged foot without contrast. FINDINGS: No marrow signal abnormality is seen in the visualized bones to suggest osteomyelitis. No focal fluid collection is seen in the soft tissues. The muscles and tendons appear intact. IMPRESSION: No significant marrow signal abnormality to suggest osteomyelitis. Please note that evalu ation is limited without IV contrast.
[2024-09-25 16:38] VITALS: O2SAT 97
[2024-09-26 06:05] LABS: Anion Gap 8.3 mEq/L (5.0-15.0); C-Reactive Protein 39.5 mg/L (<3.00); Magnesium 2.6 mg/dL (1.6-2.4); Potassium 4.3 mEq/L (3.5-5.1)
--- NOTE | 2024-09-26 09:01 | P.PN ---
Date of Service: 09/26/24 Subjective: continues with foot pain doesn't feel much relief with current pain meds otherwise doing okay, no other issues afebrile ROS: 10 point ROS as noted above, otherwise negative Physical Exam: GEN: Alert, oriented, NAD Pulm: Nonlabored respirations on room air, clear bilaterally ABD: soft, nontender, nondistended Integumentary: Wound on dorsum of left foot. Erythema up to knee. Swelling/tenderness improving. Neuro: Normal speech, normal affect Problem List: Sepsis secondary to left lower extremity cellulitis Hyponatremia, resolved Hypertension Sepsis secondary to left lower extremity cellulitis Patient met criteria for sepsis with leukocytosis and tachycardia. Wound c (09/21): MRSA only sensitive to Vanc, reeder-sensitive Streptococcus Pyogenes Blood cx (09/21): NGTD continue IV vanc (09/22-) IV cefepime dc'd given culture results. ID following possibly zyvox on dc - 2 weeks MRI w/o contrast (09/25): no evidence to suggest Osteomyelitis. pain control - Lidocaine patch, gabapentin 100 mg BID added 09/26 afebrile, leukocytosis resolved CRP improving temp: 99s Hyponatremia, resolved Normal TSH s/p IV fluids nephrology consulted Monitor and replete electrolytes as needed. improved Hypertension Patient is not on any home antihypertensives Started on coreg 12.5 mg BID 09/26 VTE: Lovenox Code: Full Dispo: Home, possibly tomorrow Pending better pain control, afebrile Time Spent Managing Pts Care (In Minutes): 45
[2024-09-26] MEDS: GABAPENTIN 100 MG CAP PO SCH (10:06)
[2024-09-26] MEDS: LIDOCAINE 4% PATCH TOP SCH (10:10)
--- NOTE | 2024-09-26 10:37 | PN ---
Date of Progress Note: 09/26/2024 Chief Complaint: Acute kidney injury. Subjective: The patient was admitted with cellulitis of the leg, nonhealing left foot ulcer, anasarca, acute kidney injury, electrolyte imbalance, and hypokalemia. Renal function has improved with hydration, and electrolytes stabilized. The patient received supplementation for hypokalemia. Potassium level remained stable. Review of Systems: Denies chest pain, palpitations. Physical Examination: Lungs: Clear to auscultation bilaterally. Heart: S1, S2. Abdomen: Soft. Extremities: Slight edema in left lower extremity. Multiple ulcers on the dorsum of the foot. No bleeding. No oozing. No drainage. Impression And Plan: 1. Acute kidney injury secondary to prerenal azotemia, toxic acute tubular necrosis secondary to sepsis related to cellulitis and NSAID. Renal function recovered. Acute kidney injury, resolved. Avoid NSAID. 2. Hypertension, controlled. Continue to adjust medication. The patient is on carvedilol. Monitor blood pressure. Adjust treatment according to blood pressure log. 3. Hyponatremia , resolved , work up ordered to rule out hypothyroidism. Hyponatremia due to NSAID , sepsis and prerenal azotemia. Hypokalemia, status post supplementation. Potassium level stable. Monitor Magnesium and phosphorus level. 4. Cellulitis, antibiotics and wound care per Primary team and Infectious Disease. KEYONNA/JERICA Voice ID: [id number] Report ID: [id number] MTDD
[2024-09-26] MEDS: LINEZOLID 600 MG TAB PO SCH (20:31)
--- NOTE | 2024-09-26 21:17 | PN ---
Subjective: The patient lying in bed. No new acute event. Denies any headache, nausea, vomiting, c hest pain, abdominal pain, constipation, or diarrhea. Objective: Vital Signs: Reviewed. Lungs: Basal crackles. Heart: S1, S2. Regular. Abdomen: Soft, nontender. Bowel sounds present. Extremities: Erythematous changes with ulceration noted. Laboratory Data: Shows WBC 8.5, hemoglobin 10.9, platelets are 315. Chemistry shows BUN of 16, crea tinine 0.8. MRSA, Strep pyogenes in his left wound culture. Blood cultures are negative. Sensitive to vancomycin. Assessment And Plan: Left foot cellulitis and ulceration of unknown etiology, possibly autoimmune. The patient's CRP is elevated, today is 39.5. Continue supportive care and wound care with Betadine. Longstanding history of tobacco use. We will follow the patient as needed. Monitor signs of infec tion with WBC and fever trends. NF/MODL Voice ID: [id number] Report ID: [id number]
--- NOTE | 2024-09-27 08:25 | P.PN ---
Date of Service: 09/27/24 Subjective: feeling better today pain improving, much more tolerable today erythema, swelling of left lower extremity continues to improve no acute events overnight afebrile ROS: 10 point ROS as noted above, otherwise negative Physical Exam: GEN: Alert, oriented, NAD Pulm: Nonlabored respirations on room air, clear bilaterally trace-1+ edema up to the knees ABD: soft, nontender, nondistended Integumentary: Wound on dorsum of left foot. minimal erythema on lateral aspect of left foot above the ankle Neuro: Normal speech, normal affect Problem List: Sepsis secondary to LLE cellulitis Hyponatremia, resolved Hypertension Sepsis secondary to LLE cellulitis Patient met criteria for sepsis with leukocytosis and tachycardia. Wound c (09/21): MRSA only sensitive to Vanc, reeder-sensitive Streptococcus Pyogenes Blood cx (09/21): NGTD IV vanc (09/22-09/26) deescalated to oral Zyvox (09/26-) Continue Zyvox for 2 weeks total (09/26-10/10) IV cefepime dc'd given culture results. MRI w/o contrast (09/25): no evidence to suggest Osteomyelitis. afebrile, leukocytosis resolved; CRP improving intermittent 99 temps yesterday afternoon/evening. None today erythema, swelling improving daily. Monitor through today since switching to Zyvox, anticipate discharge tomorrow Hyponatremia, resolved Normal TSH s/p IV fluids nephrology consulted Monitor and replete electrolytes as needed. improved Hypertension Patient is not on any home antihypertensives Started on coreg 12.5 mg BID 09/26 VTE: Lovenox Code: Full Dispo: Home, possibly tomorrow Pending better pain control, afebrile Time Spent Managing Pts Care (In Minutes): 45
[2024-09-27 08:32] LABS: Hematocrit 37.7 % (39.6-49.0); Hemoglobin 12.5 g/dL (13.6-17.9); MCH 27.5 pg (27.0-35.0); MCHC 33.3 g/dL (32.0-36.0); MCV 82.7 fL (80-100); MPV 6.7 fL (7.6-11.3); Platelets 530 thou/uL (152-406); RBC Red Blood Cell Count 4.56 M/uL (4.33-5.43); Red Cell Distribution Width 15.1 % (12.1-15.2)
[2024-09-27 09:01] LABS: Anion Gap 8.9 mEq/L (5.0-15.0); C-Reactive Protein 17.4 mg/L (<3.00); Magnesium 2.2 mg/dL (1.6-2.4); Potassium 3.9 mEq/L (3.5-5.1)
--- NOTE | 2024-09-27 09:49 | P.PN ---
Subjective Date of Service: 09/27/24 Chief Complaint: Left leg pain and swelling Subjective: Other (Bedbound.) Physical Examination - Vital Signs Temperature: 98.3 F Blood Pressure: 126/75 Pulse: 94 Respirations: 15 Pulse Ox (%): 96 - Physical Exam General: Other (appears as his stated age) HEENT: Atraumatic, Normocephalic Neck: Supple Respiratory: Other (symmetric chest expansion) Cardiovascular: No rubs, No murmurs Gastrointestinal: Soft and benign, No guarding Musculoskeletal: No clubbing Integumentary: No warmth Neurological: Normal tone Urinary: Other (no bladder distention) External genitalia: Deferred Rectal: Deferred - Studies Microbiology Data (last 24 hrs): 09/21/24 16:45 Blood - Blood Aerobic Blood Culture - Final No growth in 5 days. 09/21/24 16:45 Blood - Blood Anaerobic Blood Culture - Final No growth in 5 days. 09/21/24 17:00 Blood - Blood Aerobic Blood Culture - Final No growth in 5 days. 09/21/24 17:00 Blood - Blood Anaerobic Blood Culture - Final No growth in 5 days. Assessment And Plan - Plan 1. Acute kidney injury secondary to prerenal azotemia, toxic acute tubular necrosis secondary to sepsis related to cellulitis. [place] resolved. SCr decreased to 1.0. [place] po fluid intake at least 2 L/day. 2. Hypertension. BP meds adjusted. 3. Hypokalemia. KCl repletion prn. 4. Sepsis 2/2 LLL cellulitis. Antibiotics and wound care per Primary team and Infectious Disease. Physician Review: Patient Assessed, Agree with Above Assessment and Plan
[2024-09-28] MEDS: ACETAMINOPHEN 500 MG TAB PO PRN (02:49)
[2024-09-28 05:56] LABS: Absolute Basophils 0.1 K/uL (0-0.5); Absolute Eosinophils 0.2 K/uL (0-0.5); Absolute Lymphocytes (CBC) 2.7 K/uL (0.7-4.9); Absolute Monocytes 1.4 K/uL (0.1-1.3); Absolute Neutrophil 8.3 K/uL (1.8-8.0); Basophils % 1.1 % (0-1.3); Eosinophils % 1.6 % (0-4.4); Hematocrit 37.1 % (39.6-49.0); Hemoglobin 12.4 g/dL (13.6-17.9); Lymphocytes % 21.1 % (15.3-44.8); MCH 27.8 pg (27.0-35.0); MCHC 33.5 g/dL (32.0-36.0); MCV 82.9 fL (80-100); MPV 6.8 fL (7.6-11.3); Monocytes % 10.7 % (3.3-12.3); Neutrophils % 65.5 % (41.7-73.7); Nucleated Red Blood Cells % 0.1 % (0-0); Platelets 496 thou/uL (152-406); RBC Red Blood Cell Count 4.47 M/uL (4.33-5.43); Red Cell Distribution Width 14.6 % (12.1-15.2)
[2024-09-28 06:13] LABS: Anion Gap 7.2 mEq/L (5.0-15.0); C-Reactive Protein 10.9 mg/L (<3.00); Magnesium 2.3 mg/dL (1.6-2.4); Potassium 4.2 mEq/L (3.5-5.1)
[2024-09-28 08:12] VITALS: BP 126/75; TEMP 98.3
--- NOTE | 2024-09-28 08:30 | P.DS ---
Admission Date: 09/21/24 Discharge Date: 09/28/24 Disposition: ROUTINE DISCHARGE Discharge Condition: GOOD Reason for Admission: Left leg pain and swelling Consultations: Nephrology - Dr. Jones, Dr. Darby, Dr. Nieves Infectious Disease - Dr. Stroud Brief History of Present Illness: 49yo M, PMH: hypertension, not on any medications Patient presented with worsening left leg pain and swelling with a foot ulcer since the last 2 months. States lesion started as an ulcer without any trauma over the superior surface/dorsum of the left foot, area of ulceration continue to widen. He has taking antibiotics 1 month ago for sore throat with Augmentin for 5 days but wound area did not improve. He developed worsening of the wound size as well as new pain and swelling and new rash extending up to the upper thigh since the last 3 days. He admits to fever with chills. He states pain is worse when walking. He presented to the ED today because of persistent and worsening symptoms. On arrival in the ED temp was 99, elevated WBC at 12K with right shift, BMP was unremarkable except for serum sodium of 128. Foot x-ray shows ulceration over the dorsum of the left foot but no bony involvement. Plantar spur also noted. Venous Doppler of the lower extremity shows no DVT. Arterial Doppler shows normal biphasic flow, incidental left inguinal lymph node x 1 noted Patient has been admitted for worsening left foot ulcer with worsening cellulitis Hospital Course: Problem List: Sepsis secondary to LLE cellulitis Hyponatremia, resolved Hypertension Physician discharge instructions: Presented with worsening left lower extremity pain, swelling, erythema associated with fever/chills secondary to left lower extremity cellulitis. Wound cultures grew MRSA, only sensitive to vanc, in addition to reeder-sensitive Streptococcus Pyogenes. Venous ultrasound was negative for DVT. Arterial doppler was negative for any significant vascular abnormality. Xray foot noted soft tissue ulceration dorsal aspect of the forefoot. MRI foot did not reveal any bone involvement to suggest osteomyelitis. He initially received IV vancomycin and cefepime empirically, and was de- escalated to IV vancomycin after culture results. Dr. Stroud, ID, was consulted and recommended oral zyvox. He was transitioned to Zyvox in the evening of 09/27 and had continued improvement. Patient is to complete 7 more days of oral zyvox, to complete 2 week total course. Patient was feeling better, left lower extremity pain improving and tolerable with oral pain medication, swelling/erythema improved, and was deemed stable for discharge. Keep wound clean. Avoid submerging wound underwater. Keep left lower extremity elevated as much as possible when sitting/laying down. Lightly paint wound with betadine once daily and keep clean with kerlix/gauze. Follow up with PCP for continued monitoring of progress. Patient was noted to be hypertensive throughout hospitalization up to 160-170s systolic. He was started on Coreg 12.5mg twice daily and had some improvement. Advised patient to continue Coreg 12.5 mg twice daily on discharge. Check blood pressure around the same time each day. Keep daily log of blood pressure readings to take to follow up appointments for further adjustments of medications. Arterial doppler on admission did incidentally note a 2.4 cm lymph node in the left inguinal region - nonspecific and benign appearance. Given extent of his swelling/erythema/cellulitis, most likely reactive. However as neoplasm can have a similar appearance it is recommended that the patient have a follow-up ultrasound in ~6 weeks to assess stability/resolution. Follow up with PCP for further discussion Patient was hyponatremic on admission (sodium 128), secondary to depletional, prerenal. Nephrology was consulted. Sodium quickly resolved with IV hydration within ~36 hours and remained stable for rest of his hospitalization. Sodium on discharge: 137 Medications: Zyvox 600 mg twice daily x7 days Coreg 12.5 mg twice daily Gabapentin 100 mg twice daily x2 weeks Oxycodone 5/325 as needed for pain Follow up: PCP 3-5 days Please call to schedule / confirm appointments Continue daily local wound care: paint with betadine wrap with kerlix Physical Exam: GEN: Alert, oriented, NAD Pulm: Nonlabored respirations on room air, clear bilaterally ABD: soft, nontender, nondistended Integumentary: Healing wound on dorsum of left foot. Clean dressing in place. Neuro: Normal speech, normal affect Vital Signs/Physical Exam: Temp Pulse Resp BP Pulse Ox 98.3 F 94 H 15 126/75 96 09/28/24 08:12 09/28/24 08:12 09/28/24 08:12 09/28/24 08:12 09/28/24 08:12 Laboratory Data at Discharge: WBC 12.60 thou/uL (4.3-10.9) H 09/28/24 05:40 Hgb 12.4 g/dL (13.6-17.9) L 09/28/24 05:40 Hct 37.1 % (39.6-49.0) L 09/28/24 05:40 Plt Count 496 thou/uL (152-406) H 09/28/24 05:40 PT 13.8 SECONDS (10.0-13.0) H 09/21/24 18:15 INR 1.22 09/21/24 18:15 APTT 25.7 SECONDS (24.3-36.9) 09/21/24 18:15 Sodium 137 mEq/L (136-145) 09/28/24 05:40 Potassium 4.2 mEq/L (3.5-5.1) 09/28/24 05:40 BUN 22 mg/dL (7-18) H 09/28/24 05:40 Creatinine 1.07 mg/dL (0.70-1.30) 09/28/24 05:40 Glucose 119 mg/dL (74-106) H 09/28/24 05:40 Uric Acid 3.8 mg/dL (3.5-7.2) 09/23/24 05:59 Magnesium 2.3 mg/dL (1.6-2.4) 09/28/24 05:40 Total Bilirubin 0.6 mg/dL (0.2-1.0) 09/22/24 05:35 AST 60 U/L (15-37) H 09/22/24 05:35 ALT 60 U/L (16-61) 09/22/24 05:35 Alkaline Phosphatase 111 U/L (45-117) 09/22/24 05:35 Triglycerides 469 mg/dL (<150) H 09/22/24 05:35 Cholesterol 169 mg/dL (<200) 09/22/24 05:35 LDL Cholesterol Direct 76 mg/dL (100-129) L 09/22/24 05:35 HDL Cholesterol 9 mg/dL (40-60) L 09/22/24 05:35 Cholesterol/HDL Ratio 18.78 09/22/24 05:35 Home Medications: Gabapentin [Neurontin*] 100 mg PO BID 14 Days #28 cap 09/28/24 Linezolid [Zyvox*] 600 mg PO BID 7 Days #14 tab 09/28/24 Oxycodone HCl/Acetaminophen [Percocet 5/325 Tab*] 1 tab PO Q6H PRN #20 tab 09/28/24 carvediloL [Coreg*] 12.5 mg PO BID 30 Days #60 tab 09/28/24 New Medications: carvediloL [Coreg*] 12.5 mg PO BID 30 Days #60 tab Gabapentin [Neurontin*] 100 mg PO BID 14 Days #28 cap Oxycodone HCl/Acetaminophen [Percocet 5/325 Tab*] 1 tab PO Q6H PRN #20 tab PRN Reason: Pain Scale 8-10 (Severe) Linezolid [Zyvox*] 600 mg PO BID 7 Days #14 tab Physician Discharge Instructions: Physician discharge instructions: Presented with worsening left lower extremity pain, swelling, erythema associated with fever/chills secondary to left lower extremity cellulitis. Wound cultures grew MRSA, only sensitive to vanc, in addition to reeder-sensitive Streptococcus Pyogenes. Venous ultrasound was negative for DVT. Arterial doppler was negative for any significant vascular abnormality. Xray foot noted soft tissue ulceration dorsal aspect of the forefoot. MRI foot did not reveal any bone involvement to suggest osteomyelitis. He initially received IV vancomycin and cefepime empirically, and was de- escalated to IV vancomycin after culture results. Dr. Stroud, ID, was consulted and recommended oral zyvox. He was transitioned to Zyvox in the evening of 09/27 and had continued improvement. Patient is to complete 7 more days of oral zyvox, to complete 2 week total course. Patient was feeling better, left lower extremity pain improving and tolerable with oral pain medication, swelling/erythema improved, and was deemed stable for discharge. Keep wound clean. Avoid submerging wound underwater. Keep left lower extremity elevated as much as possible when sitting/laying down. Lightly paint wound with betadine once daily and keep clean with kerlix/gauze. Follow up with PCP for continued monitoring of progress. Patient was noted to be hypertensive throughout hospitalization up to 160-170s systolic. He was started on Coreg 12.5mg twice daily and had some improvement. Advised patient to continue Coreg 12.5 mg twice daily on discharge. Check blood pressure around the same time each day. Keep daily log of blood pressure readings to take to follow up appointments for further adjustments of medications. Arterial doppler on admission did incidentally note a 2.4 cm lymph node in the left inguinal region - nonspecific and benign appearance. Given extent of his swelling/erythema/cellulitis, most likely reactive. However as neoplasm can have a similar appearance it is recommended that the patient have a follow-up ultrasound in ~6 weeks to assess stability/resolution. Follow up with PCP for further discussion Patient was hyponatremic on admission (sodium 128), secondary to depletional, prerenal. Nephrology was consulted. Sodium quickly resolved with IV hydration within ~36 hours and remained stable for rest of his hospitalization. Sodium on discharge: 137 Medications: Zyvox 600 mg twice daily x7 days Coreg 12.5 mg twice daily Gabapentin 100 mg twice daily x2 weeks Oxycodone 5/325 as needed for pain Follow up: PCP 3-5 days Please call to schedule / confirm appointments Continue daily local wound care: paint with betadine wrap with kerlix Followup: Jeanine Mahajan MD [Primary Care Provider] - Time spent managing pt's care (in minutes): 45
--- NOTE | 2024-09-29 09:12 | P.PN ---
Subjective Date of Service: 09/28/24 Chief Complaint: Left leg pain and swelling Subjective: No new changes Physical Examination - Vital Signs Temperature: 98.3 F Blood Pressure: 126/75 Pulse: 94 Respirations: 18 Pulse Ox (%): 98 - Physical Exam General: Other (appears as his stated age) HEENT: Atraumatic Neck: Supple, JVD not distended Respiratory: Other (symmetric chest expansion) Cardiovascular: No rubs, No murmurs Gastrointestinal: Soft and benign, No guarding Musculoskeletal: No clubbing Integumentary: No warmth Neurological: Normal tone Urinary: Other (no bladder distention) External genitalia: Deferred Rectal: Deferred Assessment And Plan - Plan 1. Acute kidney injury secondary to prerenal azotemia, toxic acute tubular necrosis secondary to sepsis related to cellulitis. [place] resolved. SCr decreased to 1.0-1.1. Beatrice po fluid intake at least 2 L/day. 2. Hypertension. BP meds adjusted. 3. Hypokalemia. KCl repletion prn. 4. Sepsis 2/2 LLL cellulitis. Antibiotics and wound care per Primary team and Infectious Disease. Physician Review: Patient Assessed, Agree with Above Assessment and Plan
== END 2024-09-28 12:19 | disposition home or self-care (01) | DRG 871 ==
LOC: ER 15:15 → ERHOLD 19:44 → 2ND 09-22 13:34
PROVIDERS: ADMIT Internal Medicine; ATTEND Hospitalist
PROC: 02HV33Z Insertion of Infusion Device into Superior Vena Cava, Percutaneous Approach (ICD-10-PCS; principal; 2024-09-23)
DX: A41.9 Sepsis, unspecified organism (principal); N17.0 Acute kidney failure with tubular necrosis; L03.116 Cellulitis of left lower limb; E87.1 Hypo-osmolality and hyponatremia; I10 Essential (primary) hypertension; I87.2 Venous insufficiency (chronic) (peripheral); E87.6 Hypokalemia; I73.9 Peripheral vascular disease, unspecified; I87.8 Other specified disorders of veins; E86.9 Volume depletion, unspecified; L97.521 Non-pressure chronic ulcer of other part of left foot limited to breakdown of skin; B95.0 Streptococcus, group A, as the cause of diseases classified elsewhere; B95.62 Methicillin resistant Staphylococcus aureus infection as the cause of diseases classified elsewhere; F17.210 Nicotine dependence, cigarettes, uncomplicated; Z74.01 Bed confinement status
CPT/HCPCS: 36415; 76770; 80048; 80053; 80061; 80202; 81001; 82043; 82550; 82570; 83605; 83735; 83930; 83935; 84156; 84300; 84443; 84550; 85025; 85027; 85610; 85730; 86140; 87040; 87070; 87077; 87186; 87205; 93005; 93926; 93971; 96374; 96375; 99285; J0360; J0692; J1650; J2003; J2270; J3370; J7030; J7040; J7050